=== PATIENT | male | born 2000 | race Two or more races ===

== ENCOUNTER 2018-11-10 18:18 | Emergency (ER) | payer OTHER, SELFPAY ==
[~2018-11-10] VITALS: Ht 182.9 cm; Wt 68.0 kg
[2018-11-10 18:20] VITALS: BP 125/83
--- NOTE | 2018-11-10 18:20 | NUR ---
ED Nurse Note: PAtient biba accompanied by BERT c/o animal bite on the patients left upper arm, BERT states that they found the suspect trying to break in at someone's home to which the k9 unit bit the patient on the left upper arm causing a 1 inch laceration, at time of arrival patient's wound is open. patient complains of 8/10 pain, will complete animal bite form
[2018-11-10] MEDS ORDERED: Tetanus/Diptheria/Pertussis Vaccine 0.5ml Syr IM ONE (18:30)
[2018-11-10] MEDS ORDERED: Lidocaine 1% MPF 10mg/ml 5ml IM ONE (18:30)
[2018-11-10] MEDS ORDERED: Ketorolac 30mg Inj IM ONE (18:30)
[2018-11-10] MEDS ORDERED: Bacitracin Oint UD TOPIC ONE ×3 (18:30→19:30)
--- NOTE | 2018-11-10 18:30 | Emergency Room Report ---
History of Present Illness General Chief Complaint: Animal Bite Source: Patient, EMS Present Illness HPI 18-year-old male patient presents the ER presents the ER brought in by police for clearance for incarceration. Please report patient was allegedly attempting to connie the house and the police canine was sent in. Reports has a dog bite over his left elbow, bleeding well controlled with gauze at this time. Patient does not know tetanus vaccination status. Denies fever, chest pain, shortness of breath. Denies hitting his head or head trauma. Denies other aggravating or relieving factors. Allergies: Coded Allergies: PENICILLINS (Verified Allergy, Unknown, 11/10/18) Patient History Past Medical History: see triage record Reviewed Nursing Documentation: PMH: Agreed; PSxH: Agreed Nursing Documentation-PMH Past Medical History: No Stated History Review of Systems All Other Systems: negative except mentioned in HPI Physical Exam Vital Signs Date Time Temp Pulse Resp B/P (MAP) Pulse Ox O2 Delivery O2 Flow Rate FiO2 11/10/18 18:06 98.2 85 20 125/83 98 Room Air Sp02 EP Interpretation: reviewed, normal General Appearance: well appearing, no apparent distress, alert, GCS 15, non- toxic Head: normocephalic, atraumatic Eyes: bilateral eye normal inspection, bilateral eye PERRL ENT: hearing grossly normal, normal pharynx, no angioedema, normal voice, uvula midline, moist mucus membranes Neck: full range of motion Respiratory: lungs clear, normal breath sounds, no rhonchi, no respiratory distress, no accessory muscle use, no wheezing, speaking full sentences Cardiovascular #1: regular rate, rhythm, no edema Cardiovascular #2: 2+ radial (R), 2+ radial (L) Musculoskeletal: back normal, digits/nails normal, gait/station normal, non- tender, decreased range of motion - Secondary to pain, other - NVI, refill less than 2 seconds, AIN/PIN/radial nerve intact Psychiatric: mood/affect normal Skin: other - 5 dog puncture wounds over left upper extremity near anterior and posterior elbow, no surrounding erythema or edema, bleeding well controlled , no foreign body visualized; one 2 cm ellpitical shaped laceration proximal to antecubital fossa, deep, no surrounding erythema or edema, no bone visualized, bleeding well controlled Medical Decision Making PA Attestation Dr. Tamayo is my supervising Physician whom patient management has been discussed with. Diagnostic Impression: Primary Impression: Bite by animal ER Course Pt presents to ED c/o animal bite. DDX considered but are not limited to animal bite, abrasion, cellulitis, contusion, fracture, laceration, retained foreign body. VITALS Patient is afebrile ED COURSE: Provide with pain medication. X-ray of left elbow shows no acute disease per the preliminary reading. No radiopaque FB visualized. Without puncture wounds to heal by secondary intention. Offered patient option to approximate wound of larger puncture wounds and laceration. Patient declined. Informed patient of risk of scar formation without wound approximation, patient repeatedly declined. Wound clean, bacitracin applied, and placed in sterile dressing. TDap provided to patient. Rx provided for Bactrim and clindamycin due to patient allergy to penicillin. Patient instructed to follow up with PCP for wound check in 2-3 days and complete full course of antibiotics. ER precautions given. Patient medically cleared for incarceration. DISCHARGE: At this time pt is stable for d/c to home. Patient resting comofortabnly in no acute distress, nontoxic appearing. Will provide with patient care instructions and any necessary prescriptions. Patient to take medication as instructed. Care plan and follow-up instructions provided. Patient questions asked and answered. Followup with PCP in 2-3 days to discuss further treatment and referral as needed. ER precautions given. Patient instructed to return to ER immediately for any new or worsening of symptoms. - Please note that this Emergency Department Report was dictated using [employer] technician technology software, occasionally this can lead to erroneous entry secondary to interpretation by the dictation equipment. Other X-Ray Diagnostic Results Other X-Ray Diagnostic Results : X-Ray ordered: left elbow # of Views/Limited Vs Complete: 3 View Indication: Pain EP Interpretation: Yes PA Xray: Interpretation reviewed, by supervising MD, and agrees with findings. Interpretation: no dislocation, no soft tissue swelling, no fractures, other - No radiopaque foreign body Impression: No acute disease NO Scribadry Text Sea Mock PA-C Last Vital Signs Date Time Temp Pulse Resp B/P (MAP) Pulse Ox O2 Delivery O2 Flow Rate FiO2 11/10/18 18:06 98.2 85 20 125/83 98 Room Air Status: improved Disposition: HOME, SELF-CARE Condition: Stable Scripts Ibuprofen* (MOTRIN*) 600 Mg Tablet 600 MG ORAL Q8H PRN for For Pain, #30 TAB 0 Refills Prov: Cy Mock 11/10/18 Clindamycin HCl (Clindamycin HCl) 300 Mg Capsule 300 MG ORAL Q8HR for 7 Days, #21 CAP Prov: Cy Mock 11/10/18 Doxycycline Hyclate* (VIBRAMYCIN*) 100 Mg Capsule 100 MG ORAL EVERY 12 HOURS for 7 Days, #14 CAP 0 Refills Prov: Cy Mock 11/10/18 Bacitracin/Polymyxin B Sulfate (BACITRACIN-POLYMYXIN OINTMENT) 28.35 Gm Oint...g. 1 APPLIC TP BID, #28 GM Prov: Cy Mock 11/10/18 Patient Instructions: Animal Bite Additional Instructions: Followup with primary care provider in 3 -5 days. Keep clean and dry. Apply topical medication as instructed. Take medications as directed. Patient questions asked and answered. ER precautions given, patient instructed to return to ER immediately for any new or worsening of symptoms. Cy Mock Nov 10, 2018 18:29
--- NOTE | 2018-11-10 19:10 | NUR ---
ED Nurse Note: Received report from Ines/RN, [employer] at bed side,waitng for medical clearance. Pt is A/O X 4, will continue to monitor.
[2018-11-10] MEDS ORDERED: Bacitracin Oint 15gm Tube TOPIC ONE (19:17)
[2018-11-10] MEDS ORDERED: VIBRAMYCIN100 MG ORAL (19:19)
[2018-11-10] MEDS ORDERED: BACITRACIN-P28.35 GM TP (19:19)
[2018-11-10] MEDS ORDERED: CLEOCIN150 MG ORAL (19:19)
[2018-11-10] MEDS ORDERED: IBUPROFEN600 MG ORAL (19:19)
[2018-11-10 19:27] VITALS: BP 122/81
--- NOTE | 2018-11-10 19:27 | NUR ---
ER DISCHARGE NOTE: Patient is cleared to be discharged per Cy Mock/ NO .Medical report given to [employer]. Dressing applied to Left arm and Tetanus given. Pt is A/O x4 on room air with stable vital signs. Pt and [employer] were given D/C and prescription instructions, and able to verbalize understanding. Pt ID band removed. pt is able to ambulate with steady gait and took all belongings. Accompanied by [employer].
--- NOTE | 2018-11-11 11:30 | Diagnostic Imaging Report ---
Indications:Elbow pain, injury, wound, dog bite injury Technique: Three views of the left elbow Comparison: None Findings:Positioning is suboptimal. Lucencies in the anterior distal upper arm reflect penetrating trauma related to stated clinical history of dog bite. No bony disruption. No radiopaque foreign bodies. Joint effusion not excludable due to suboptimal positioning on the lateral view Impression: Anterior soft tissue lucencies, may be related to stated clinical history of penetrating trauma prior. No acute bony trauma
== END 2018-11-10 19:27 | disposition home or self-care (01) ==
LOC: EDBD 18:18 → EMR 19:18
DX: S51.052A Open bite, left elbow, initial encounter (principal); S41.112A Laceration without foreign body of left upper arm, initial encounter; W54.0XXA Bitten by dog, initial encounter; Y92.9 Unspecified place or not applicable; Z88.0 Allergy status to penicillin; Z23 Encounter for immunization; Z20.3 Contact with and (suspected) exposure to rabies
CPT/HCPCS: 73080; 90471; 90715; 99283; J1885